=== PATIENT | male | born 1960 | race Caucasian/White ===

== ENCOUNTER 2018-01-01 15:30 | Inpatient (IN) | payer OTHER ==
[~2018-01-01] VITALS: Ht 182.9 cm; Wt 101.6 kg
[2018-01-01] MEDS ORDERED: LOSARTAN POTASS25 MG PO (16:49)
[2018-01-01] MEDS ORDERED: PROTONIX20 MG PO (16:49)
[2018-01-01] MEDS ORDERED: MOTRIN IB200 MG PO (16:49)
[2018-01-01] MEDS ORDERED: ZANTAC150 MG PO (16:50)
[2018-01-01] MEDS ORDERED: PERCOCET 10-321 EACH PO (16:50)
[2018-01-16] MEDS ORDERED: DOCUSATE SODIU100 MG PO (10:07)
[2018-01-16] MEDS ORDERED: PERCOCET 5-3251 EACH PO (10:09)
[2018-01-16] MEDS ORDERED: CLONAZEPAM1 MG PO (10:09)
== END 2018-01-16 13:37 | disposition home or self-care (01) | DRG 455 ==
LOC: O/R 01-15 04:29 → SURG 01-15 04:29
PROVIDERS: Orthopaedic Surgery Orthopaedic Surgery of the Spine
PROC: 0RG2071 Fusion of 2 or more Cervical Vertebral Joints with Autologous Tissue Substitute, Posterior Approach, Posterior Column, Open Approach (ICD-10-PCS; 2018-01-15)
PROC: 0RT30ZZ Resection of Cervical Vertebral Disc, Open Approach (ICD-10-PCS; 2018-01-15)
PROC: 07DS3ZZ Extraction of Vertebral Bone Marrow, Percutaneous Approach (ICD-10-PCS; 2018-01-15)
PROC: 0RG20A0 Fusion of 2 or more Cervical Vertebral Joints with Interbody Fusion Device, Anterior Approach, Anterior Column, Open Approach (ICD-10-PCS; principal; 2018-01-15 07:00)
DX: M47.22 Other spondylosis with radiculopathy, cervical region (principal); M50.323 Other cervical disc degeneration at C6-C7 level; I10 Essential (primary) hypertension

== ENCOUNTER 2020-09-08 10:15 | Inpatient (IN) | payer OTHER ==
[~2020-09-08] VITALS: Ht 182.9 cm; Wt 101.2 kg
[~2020-09-08 10:15] MED LIST: CLONAZEPAM1 MG PO; DOCUSATE SODIU100 MG PO; LOSARTAN POTASS25 MG PO; MOTRIN IB200 MG PO; PERCOCET 10-321 EACH PO; PERCOCET 5-3251 EACH PO; PROTONIX20 MG PO; ZANTAC150 MG PO
[2020-09-08] MEDS ORDERED: MELOXICAM15 MG PO (11:27)
[2020-09-15] MEDS ORDERED: AMOX-CLAV 875-1 EAC1 PO (09:14)
[2020-09-15] MEDS ORDERED: DIAZEPAM5 MG PO (09:14)
[2020-09-15] MEDS ORDERED: COLACE100 MG PO (09:14)
[2020-09-15] MEDS ORDERED: MEDROLPACK PO (09:14)
[2020-09-15] MEDS ORDERED: NEURONTIN800 MG PO (09:14)
[2020-09-15] MEDS ORDERED: PERCOCET 5-3251 EACH PO (09:14)
== END 2020-09-16 15:06 | disposition home or self-care (01) | DRG 460 ==
LOC: O/R 09-15 05:18 → PED 09-15 05:18 → SURH 09-15 07:00 → PED 09-15 11:43
PROVIDERS: ADMIT Orthopaedic Surgery Orthopaedic Surgery of the Spine; ATTEND Orthopaedic Surgery Orthopaedic Surgery of the Spine
PROC: 0QB30ZZ Excision of Left Pelvic Bone, Open Approach (ICD-10-PCS; 2020-09-15)
PROC: 3E0U0GB Introduction of Recombinant Bone Morphogenetic Protein into Joints, Open Approach (ICD-10-PCS; 2020-09-15)
PROC: 0SG00A0 Fusion of Lumbar Vertebral Joint with Interbody Fusion Device, Anterior Approach, Anterior Column, Open Approach (ICD-10-PCS; principal; 2020-09-15 07:00)
DX: M48.062 Spinal stenosis, lumbar region with neurogenic claudication (principal); M51.36 Other intervertebral disc degeneration, lumbar region